=== PATIENT | female | born 1960 | race Two or more races ===

== ENCOUNTER 2018-05-11 19:04 | Emergency (ER) | payer SELFPAY ==
[2018-05-11 19:12] VITALS: BP 115/52
[2018-05-11] MEDS ORDERED: PREDNISONE 20 MG TABLET PO ONE (19:19)
--- NOTE | 2018-05-11 19:23 | ER Document Report ---
ED Allergic Reaction - General Chief Complaint: Allergic Reaction Stated Complaint: ALLERGIC REACTION Time Seen by Provider: 05/11/18 19:19 Mode of Arrival: Ambulatory Information source: Parent Notes: History of Present Illness Chief Complaint: [Allergic Reaction] [ ] History obtained from [patient] 57 years old female who is allergic to peanuts and pomegranate and other food, ate a piece of fruit cake kind of suite, started having itchy sensation and difficulty in breathing. Therefore present to the ED. She was given 2 tablets of Benadryl that is 25 mg each prior to arrival. Has no difficulty in breathing or stridor now. Did not break out into rash. Symptoms began: [immediately prior to arrival] Onset: [gradual] Timing: [constant] Quality: [ As above] Location: [Generalized ] Intensity: [moderate] Radiation:[ none] Migration: [none] Aggravating factors: [none] Relieving factors:[ none] Denies change in voice Denies inability to swallow Denies swelling of tongue or mouth Denies sensation of throat closing Able to tolerate PO Review of Systems: All other systems negative as reviewed. CONSTITUTIONAL No Fever. EYES No eye pain. ENT No sore throat CARDIOVASCULAR No chest pain. RESPIRATORY No SOB. GI No abdominal pain, no vomiting, no diarrhea. GENITOURINARY No dysuria. SKIN No rash. NEUROLOGIC No headache. MUSCULOSKELETAL No back pain. Physical Exam CONSTITUTIONAL Vital signs reviewed, Patient has normal respiratory rate, Well appearing, Patient appears comfortable, normal stature. HEAD [ ]Atraumatic, Normocephalic. EYES Eyes are normal to inspection. ENT Ears normal to inspection, Nose examination normal.Oropharynx examination [ normal]- [no] mass, [no] swelling, [no] deviation. Tongue- [normal] NECK No stridors No jugular venous distention. RESPIRATORY CHEST [ ] Breath sounds normal, No respiratory distress. CARDIOVASCULAR RRR, No murmurs, Normal S1 S2, No rub, No gallop. ABDOMEN Abdomen is nontender, No masses, Bowel sounds normal, No distension, No peritoneal signs. BACK Normal inspection. UPPER EXTREMITY Inspection normal. LOWER EXTREMITY Inspection normal. NEURO No focal motor deficits. SKIN [ ] Skin is warm, Skin is dry, Skin is normal color. No obvious erythema noted. PSYCHIATRIC Normal affect. TRAVEL OUTSIDE OF THE [place] IN LAST 30 DAYS: No - HPI Notes: Dictated - Related Data Allergies/Adverse Reactions: peanut Allergy (Verified 05/11/18 19:06) Penicillins Allergy (Verified 05/11/18 19:06) Past Medical History - Social History Smoking Status: Never Smoker Frequency of alcohol use: None Drug Abuse: None Lives with: Family Family History: Reviewed & Not Pertinent Review of Systems - Review of Systems Notes: Dictated Physical Exam - Vital signs Vitals: Temp Pulse Resp BP Pulse Ox 97.8 F 72 16 115/52 L 96 05/11/18 19:10 05/11/18 19:10 05/11/18 19:10 05/11/18 19:10 05/11/18 19:10 - Notes Notes: Dictated Course - Re-evaluation Re-evalutation: 05/11/18 19:21 Given prednisone 60 mg - Vital Signs Vital signs: Temp Pulse Resp BP Pulse Ox 97.8 F 72 16 115/52 L 96 05/11/18 19:10 05/11/18 19:10 05/11/18 19:10 05/11/18 19:10 05/11/18 19:10 Discharge - Discharge Clinical Impression: Acute allergic reaction Qualifiers: Encounter type: initial encounter Qualified Code(s): T78.40XA - Allergy, unspecified, initial encounter Disposition: HOME, SELF-CARE Instructions: Acute Allergic Reaction ([facility]) Prescriptions: Epinephrine [Epipen 2-Kenji] 0.3 mg IJ ASDIR PRN #1 auto.injct PRN Reason: Prednisone 10 mg PO ASDIR PRN 6 Days #1 tab.ds.pk PRN Reason:
== END 2018-05-11 20:01 | disposition home or self-care (01) ==
LOC: ER 19:04
DX: T78.40XA Allergy, unspecified, initial encounter (principal); R06.00 Dyspnea, unspecified; L29.9 Pruritus, unspecified; X58.XXXA Exposure to other specified factors, initial encounter; Z91.010 Allergy to peanuts; Z91.018 Allergy to other foods; Z88.0 Allergy status to penicillin
CPT/HCPCS: 99283; J7512